=== PATIENT | male | born 1935 | race Caucasian/White ===

== ENCOUNTER 2018-09-25 18:10 | Inpatient (IN) | payer MEDICARE, MEDICAID | END 2018-09-28 12:07 | LOC: 4TH 09-27 09:15 → ER 18:10 → ICU 19:30 | DX: J96.00 Acute respiratory failure, unspecified whether with hypoxia or hypercapnia (principal); I11.0 Hypertensive heart disease with heart failure; I50.21 Acute systolic (congestive) heart failure; I48.91 Unspecified atrial fibrillation; N17.9 Acute kidney failure, unspecified; J44.0 Chronic obstructive pulmonary disease with (acute) lower respiratory infection; J18.1 Lobar pneumonia, unspecified organism; A04.72 Enterocolitis due to Clostridium difficile, not specified as recurrent; Z66 Do not resuscitate; E87.2 Acidosis; E86.0 Dehydration; E87.70 Fluid overload, unspecified; G30.9 Alzheimer's disease, unspecified; F02.81 Dementia in other diseases classified elsewhere, unspecified severity, with behavioral disturbance; R13.12 Dysphagia, oropharyngeal phase; F20.9 Schizophrenia, unspecified; M17.10 Unilateral primary osteoarthritis, unspecified knee; Z87.891 Personal history of nicotine dependence; Z79.899 Other long term (current) drug therapy ==